=== PATIENT | female | born 2005 | race Caucasian/White ===

== ENCOUNTER 2024-07-12 22:12 | Observation (INO) | payer OTHER, SELFPAY ==
--- NOTE | ~2024-07-12 | CT_ITS ---
CLINICAL HISTORY: RLQ pain CT abdomen and pelvis with contrast Comparison: None Findings: No consolidation of imaged lung bases. No liver mass. Spleen is nonenlarged. Adrenal glands are partly obscured but otherwise unremarkable. Gallbladder is unremarkable for CT. Pancreas unremarkable. Filtered contrast could obscure medullary calcinosis or small stones in the renal collecting systems. No hydronephrosis. Small mesenteric and periaortic lymph nodes are nonspecific and likely reactive. No small bowel obstruction. Severe stool burden present, including imaged cecum. Mild dilatation of the appendix measuring 0.8 cm diameter. This raises imaging concern for appendicitis, given fluid in the right lower quadrant and additional free fluid in the lower abdomen and pelvis. Fluid in the pelvic is nonspecific, and pelvic inflammatory disease is also considered. Intrauterine device is in place. No adnexal soft tissue mass by CT. Mild wall thickening of the urinary bladder is nonspecific. No free intraperitoneal air. No acute fracture. Multiple imaged growth plates remain open. Subcutaneous edema is noted. IMPRESSION: Mild dilatation of the appendix concerning for appendicitis; given abnormal free fluid in the abdomen and pelvis. This document has been electronically signed by: Hi Joe MD on 07/13/2024 02:56:37
[2024-07-12 22:25] VITALS: BP 167/87; PULSE 84; RESP 20; TEMP 36.8; O2SAT 100; BMI 25.8
[2024-07-12 22:51] LABS: MANUAL DIFF FLAG NO
[2024-07-12 22:58] LABS: Basophils Percent Auto 0.3 % (0-2); Eosinophils Absolute Auto 0.1 X10*3/uL (0.0-0.4); Eosinophils Percent Auto 0.4 % (0-4); Hematocrit 38.4 % (37.0-47.0); Hemoglobin 13.1 g/dl (12.0-16.0); Imm Gran Abs Auto 0.02 X10*3/uL (0.00-0.03); Imm Gran Pct Auto 0.2 % (0.0-0.4); Lymphocytes Percent Auto 17.5 % (20-40); Mean Corpuscular HGB Conc 34.1 g/dl (31.0-35.0); Mean Corpuscular Hemoglobin 29.2 pg (27.0-33.0); Mean Corpuscular Volume 85.5 fL (80.0-98.0); Mean Platelet Volume 8.8 fL (9.4-12.3); Monocytes Absolute Auto 0.8 X10*3/uL (0.1-1.2); Monocytes Percent Auto 6.9 % (2-11); Neutrophils Absolute Auto 8.7 x10*3/uL (2.0-8.3); Neutrophils Percent Auto 74.7 % (45-73); Platelet Count 319 X10*3/uL (160-400); Red Blood Count 4.49 X10*6/uL (4.20-5.50); Red Cell Distribution Width 12.4 % (11.0-16.0); White Blood Count 11.7 X10*3/uL (4.8-10.8)
[2024-07-12 23:06] LABS: Alanine Aminotransferase 24 U/L (0-31); Albumin Level 4.1 g/dL (3.5-5.0); Alkaline Phosphatase 73 U/L (39-117); Anion Gap 12 (12-20); Aspartate Amino Transferase 22 U/L (5-31); Bilirubin Total 0.2 mg/dL (0.0-1.0); Blood Urea Nitrogen 13 mg/dL (9-16); Calcium 8.7 mg/dL (8.4-10.2); Carbon Dioxide 25 mmol/L (22-29); Chloride 105 mmol/L (96-108); Creatinine Clr Calc Pharmacy 148.1; Estimated Glomerular Filt Rate > 60; Glucose Random 102 mg/dL (60-115); Potassium 3.2 mmol/L (3.3-5.1); Sodium 139 mmol/L (135-145); Total Protein 7.8 g/dL (6.5-8.0)
[2024-07-12 23:34] LABS: Influenza A PCR NEGATIVE (Negative); Influenza B PCR NEGATIVE (Negative); Resp Syncy Virus RNA Qual PCR NEGATIVE (Negative); SARS COV2 PCR INHOUSE NEGATIVE (Negative)
--- NOTE | 2024-07-13 00:53 | ED.ABDPAIN ---
HPI - Abdominal Pain General Chief Complaint: Abdominal Pain Stated Complaint: lower right abd pain Time Seen by Provider: 07/13/24 00:45 Source: patient Mode of arrival: ambulatory Limitations: no limitations History of Present Illness ED Provider: SIXTO HPI narrative: 18 yo female with no PMH here with LLQ pain now RLQ pain and nausea no fevers no diarrhea pain initially LLQ now RLQ and it hurts to move. She notes some pain with intercourse denies prior abd surgery. MD elicited complaint: abdominal pain Pertinent past history: none Onset (ago): day(s) (5) Pain Consistency: intermittent Location: RLQ and suprapubic Severity: moderate Quality: aching Radiation: none Migration to: no migration Exacerbating factors: movement and other Relieving factors: nothing Associated symptoms: nausea Related Data Allergies Allergy/AdvReac Type Severity Reaction Status Date / Time No Known Allergies Allergy Verified 07/12/24 22:27 Review of Systems Review of Systems Constitutional : No Weight loss, No Fever, No Chills ENT/Mouth : No sore throat, No Rhinorrhea Eyes: No Swelling, No Redness Cardiovascular : No Chest Pain, No SOB, NoEdema Respiratory : No Cough, No Sputum, No Wheezing Gastrointestinal : Positive Nausea, Positive Vomiting, no Diarrhea, positive abdominal Pain, No Hematochezia, No Melena Genitourinary : No Dysuria, No Urinary Frequency, No Hematuria, No Urgency Musculoskeletal : No joint pain, No Myalgias, No Joint Swelling Skin : No Skin Lesions, No rash Neuro : No Weakness, No Numbness, No Dizziness, No Headache Psych : No Anxiety/Panic, No Depression Heme/Lymph: No Bruising, No Lymphadenopathy Endocrine : No Polyuria, No Polydipsia All other systems reviewed and are negative. [facility] Past Medical History Attestation statement: The following information was validated with the patient. Source: old records reviewed Medical History No pertinent past medical history Social History Social History (Updated 07/13/24 @ 00:55 by Alcira Welch DO) Patient Tobacco Use Status: Never used Tobacco Advance Directives: No Advance Directives Information Provided: No Physical Exam ED Vital Signs: Vital Signs - 24 hr 07/12/24 22:25 Temperature 98.3 F Pulse Rate 84 Respiratory Rate 20 Blood Pressure 167/87 H Pulse Oximetry 100 Oxygen Delivery Method Room Air BMI result Body Mass Index 25.8 Appearance: Alert. Oriented X3. No acute distress. Eyes: Pupils equal, round and reactive to light. ENT: Pharynx normal. Neck: Normal inspection. Neck supple. CVS: Normal heart rate and rhythm. Pulses normal. Respiratory: No respiratory distress. Breath sounds normal. Abdomen: Soft and moderate ttp in RLQ palpation of LLQ causes pain in RLQ Skin: Skin warm and dry. Normal skin color. Normal skin turgor. Extremities: No lower extremity edema. No calf ttp Neuro: Oriented X 3. No motor deficit. No sensory deficit. CN2-12 intact Medical Decision Making Medical Decision Making [facility] Narrative: 18 yo female with abdominal pain now with RLQ pain and + Rovsings sign at this time will need basic labs, CT scan for appendicitis, if negative possible US of ovary, IVF and IV toradol for pain Differential Diagnosis Differential Diagnoses: The differential diagnosis associated with the presentation includes ovarian cyst, appendicitis Admission/Observation Consideration of admission/observation: Escalation of care including admission/observation considered admit to surgery, Dr. Ruiz to see first thing in AM Consult Healthcare Provider Management of the patient was discussed with: Improvement Coordinator Lab Data [facility] Lab Attestation statement: I reviewed the patient's lab results. 07/12/24 22:46 07/12/24 22:46 Labs: Lab Results 07/12/24 07/13/24 Range/Units 22:46 01:20 WBC 11.7 H (4.8-10.8) X10*3/uL RBC 4.49 (4.20-5.50) X10*6/uL Hgb 13.1 (12.0-16.0) g/dl Hct 38.4 (37.0-47.0) % MCV 85.5 (80.0-98.0) fL MCH 29.2 (27.0-33.0) pg MCHC 34.1 (31.0-35.0) g/dl RDW 12.4 (11.0-16.0) % Plt Count 319 (160-400) X10*3/uL MPV 8.8 L (9.4-12.3) fL Immature Gran % (Auto) 0.2 (0.0-0.4) % Neut % (Auto) 74.7 H (45-73) % Lymph % (Auto) 17.5 L (20-40) % Henry % (Auto) 6.9 (2-11) % Eos % (Auto) 0.4 (0-4) % Baso % (Auto) 0.3 (0-2) % Lymph # (Auto) 2.0 (1.2-4.9) X10*3/uL Henry # (Auto) 0.8 (0.1-1.2) X10*3/uL Eos # (Auto) 0.1 (0.0-0.4) X10*3/uL Baso # (Auto) 0.0 (0.0-0.2) X10*3/uL Abs Immat Gran (auto) 0.02 (0.00-0.03) X10*3/uL Absolute Neuts (auto) 8.7 H (2.0-8.3) x10*3/uL Absolute Nucleated RBC 0.000 (0.0-0.012) X10*3/uL Nucleated RBC % (auto) 0.0 (0.0-0.2) /100WBC Sodium 139 (135-145) mmol/L Potassium 3.2 L (3.3-5.1) mmol/L Chloride 105 (96-108) mmol/L Carbon Dioxide 25 (22-29) mmol/L Anion Gap 12 (12-20) BUN 13 (9-16) mg/dL Creatinine 0.64 (0.5-1.4) mg/dL Estim Creat Clear Calc 148.1 Estimated GFR > 60 Random Glucose 102 (60-115) mg/dL Calcium 8.7 (8.4-10.2) mg/dL Total Bilirubin 0.2 (0.0-1.0) mg/dL AST 22 (5-31) U/L ALT 24 (0-31) U/L Alkaline Phosphatase 73 (39-117) U/L Total Protein 7.8 (6.5-8.0) g/dL Albumin 4.1 (3.5-5.0) g/dL Urine Color Yellow Urine Appearance Clear Urine pH 6.5 (5.0-9.0) Ur Specific [place] 1.020 (1.005-1.025) Urine Protein Negative (Neg-Trace) mg/dL Urine Glucose (UA) Negative (Negative) mg/dL Urine Ketones Trace (Negative) mg/dL Urine Blood Negative (Negative) Urine Nitrite Negative (Negative) Ur Leukocyte Esterase Small (1+) H (Negative) Urine RBC 0-2 (0-2) /HPF Urine WBC 0-5 (0-5) /HPF Ur Squamous Epith Cells 0-2 (0-2) /HPF Urine Bacteria None Seen (None Seen) Hyaline Casts 0-2 (0-2) /LPF Urine Test NEGATIVE (NEGATIVE) Influenza Type A (PCR) NEGATIVE (Negative) Influenza Type B (PCR) NEGATIVE (Negative) RSV RNA Qual (PCR) NEGATIVE (Negative) SARS-CoV-2 RNA (RT-PCR) NEGATIVE (Negative) Independent Interpretation I performed an independent interpretation of an: CT Scan (?appendicitis) Radiology Impression Discussion of test interpretation with radiology: I have reviewed the radiologist's reading. Prescription Management I considered prescription management with: Pain Medication and Other Medications Administered Discontinued Medications Generic Name Dose Route Start Last Admin Trade Name Freq PRN Reason Stop Dose Admin Lactated Ringer's 1,000 mls @ 999 mls/hr 07/13/24 00:51 07/13/24 01:17 Lr IV 07/13/24 01:51 999 mls/hr .Q1H1M ONE Administration Iohexol 85 ml 07/13/24 02:03 07/13/24 02:04 Iohexol 350 Mg/Ml 100 Ml Infus..Btl IV 07/13/24 02:04 85 ml ONCE ONE Administration Ketorolac Tromethamine 15 mg 07/13/24 00:51 07/13/24 01:14 Ketorolac Tromethamine 15 Mg/Ml Vial IVPUSH 07/13/24 00:52 15 mg ONCE ONE Administration Ondansetron HCl 4 mg 07/13/24 00:51 07/13/24 01:14 Ondansetron Hcl 4 Mg/2 Ml Vial IVPUSH 07/13/24 00:52 4 mg ONCE ONE Administration Discharge Plan Discharge Clinical Impression: Abdominal pain, Acute hypokalemia Patient Disposition: Admitted As Inpatient Print Language: Amharic
[2024-07-13] MEDS: ondansetron HCL 4 MG/2 ML VIAL IVPUSH ×2 (01:14→15:13)
[2024-07-13] MEDS: Ketorolac Tromethamine 15 MG/ML VIAL IVPUSH (01:14)
[2024-07-13] MEDS: Lactated Ringers 1,000 ML 999 ML IV (01:17)
[2024-07-13 01:31] LABS: Appearance Urine Clear; Color Urine Yellow; Glucose Urine UA Negative (Negative); Leukocyte Esterase Urine Small (1+) (Negative); Nitrite Urine Negative (Negative); PH 6.5 (5.0-9.0); UMIC TRIGGER UACC YES; UPreg QC Valid YES; Urine Blood Negative (Negative); Urine Ketones Trace mg/dL (Negative); Urine Pregnancy NEGATIVE (NEGATIVE); Urine Protein Negative (Neg-Trace)
[2024-07-13 01:42] LABS: Bacteria Urine None Seen (None Seen); Hyaline Casts Urine 0-2 /LPF (0-2); RBC Urine 0-2 /HPF (0-2); Squamous Epithelial Cell Urine 0-2 /HPF (0-2); UACC Culture Trigger YES; WBC Urine 0-5 /HPF (0-5)
[2024-07-13] MEDS: iohexoL 350 MG/ML 100 ML INFUS..BTL 85 ML IV (02:04)
[2024-07-13] MEDS: Piperacillin Sodium/Tazobactam 3.375 GM in 0.9 % Sodium Chloride 50 ML IV ×4 (04:21→21:20)
[2024-07-13 04:27] VITALS: BP 118/79; PULSE 80; RESP 18; TEMP 36.8; O2SAT 100
[2024-07-13] MEDS: Lactated Ringers 1,000 ML 80 ML IVCONT ×2 (05:04→16:03)
[2024-07-13] MEDS: Potassium Chloride/H20 10 MEQ/100 ML PIGGYBACK 100 MEQ IV ×2 (05:04→06:08)
[2024-07-13 07:21] VITALS: BP 110/60; PULSE 97; RESP 20; TEMP 36.8; O2SAT 100
--- NOTE | 2024-07-13 07:39 | P.HPGS_ITS ---
History of Present Illness History of Present Illness Date of Service: 07/13/24 Chief complaint: Early appendicitis Narrative: Nicci Sharma is a 18 year old female presenting with complaints of right lower quadrant abdominal pain. For the previous week she reported pain in the left lower quadrant which gradually radiated to the right lower quadrant over the past 24 hours. The pain was between 6 and 8/10 in severity last evening but now as a proximally 5/10. She denies nausea or vomiting and reports having a good appetite this morning. She denied fever or chills. She did report pain with motion such as sitting up on bed. This is improved this morning. She denies a previous history of similar symptoms. Workup revealed a mildly elevated WBC. CT abdomen and pelvis revealed dilated appendix at 8 cm suggestive of early appendicitis. She was admitted to the surgical service for further management. Review of Systems Review of Systems: Yes all other systems are reviewed and are negative PMFSH Past Medical History Medical History (Updated 07/13/24 @ 07:45 by Iain Ruiz MD) Acute appendicitis No pertinent past medical history Social History Social History (Updated 07/13/24 @ 00:55 by Alcira Welch DO) Patient Tobacco Use Status: Never used Tobacco Smoked in Last 30 Days: No Use of substances other than those prescribed or required for medical reasons: No Advance Directives: No Advance Directives Information Provided: No Patient : No Meds Allergies Allergy/AdvReac Type Severity Reaction Status Date / Time No Known Allergies Allergy Verified 07/12/24 22:27 Active Medications: Current Medications Acetaminophen (Acetaminophen 325 Mg Tablet) 650 mg PO Q6H PRN PRN Reason: Pain, Mild 1-3,fever,headache Calcium Carbonate (Calcium Carbonate 750 Mg Tab.Chew) 750 mg PO Q4H PRN PRN Reason: Heartburn Hydromorphone HCl (Hydromorphone Hcl 0.5 Mg/0.5 Ml Syringe) 0.5 mg IVPUSH Q3H PRN; Protocol PRN Reason: Pain, Severe (Pain Scale 7-10) Lactated Ringer's (Lr) 1,000 mls @ 80 mls/hr IVCONT .[id number] LUCY Last Admin: 07/13/24 05:04 Dose: 80 mls/hr Piperacillin Sod/Tazobactam (Sod 3.375 gm/ Sodium Chloride) 50 mls @ 100 mls/hr IV Q6H [facility] Last Infusion: 07/13/24 05:03 Dose: Infused Magnesium Hydroxide (Milk Of Magnesia 30 Ml Oral.Susp) 30 ml PO DAILY PRN PRN Reason: Constipation Ondansetron HCl (Ondansetron Hcl 4 Mg/2 Ml Vial) 4 mg IVPUSH QID PRN PRN Reason: Nausea Oxycodone HCl (Oxycodone Hcl Immed Release 5 Mg Tablet) 5 mg PO Q6H PRN PRN Reason: Pain, Moderate(Pain Scale 4-6) Sodium Chloride (0.9 % Sodium Chloride Flush 3 Ml Syringe) 3 ml IVFLUSH QSHIFT [facility] Zolpidem Tartrate (Zolpidem Tartrate 5 Mg Tablet) 5 mg PO BEDTIME PRN PRN Reason: Insomnia Home Medications ?Medication ?Instructions ?Recorded ?Confirmed ?Last Taken ?Type omeprazole 20 mg capsule,delayed 20 mg PO DAILY@0630 07/13/24 Unknown History release Physical Exam Vital Signs: Vital Signs: Last Vital Signs Temp 98.2 F 07/13/24 07:21 Pulse 97 07/13/24 07:21 Resp 20 07/13/24 07:21 BP 110/60 07/13/24 07:21 Pulse Ox 100 07/13/24 07:21 O2 Del Method Room Air 07/13/24 07:21 BMI result Body Mass Index 25.8 Const: General: healthy appearing and comfortable Nutritional Appearance: well nourished Orientation/consciousness: patient oriented x3 Limitations: no limitations HEENT: Head: Yes normocephalic and Yes atraumatic Resp: Effort & Inspection: normal respiratory effort, no audible wheezes, no cough and no respiratory distress GI: Other: Soft, mild tenderness in the right lower quadrant, positive Rovsing sign, no rebound, guarding or rigidity. No scars Skin: Other: Warm, dry, no rashes Neuro: General: patient oriented x3 Extrem: General: Yes no clubbing, cyanosis or edema Results Results Labs: Short CBC 07/12/24 Range/Units 22:46 WBC 11.7 H (4.8-10.8) X10*3/uL Hgb 13.1 (12.0-16.0) g/dl Hct 38.4 (37.0-47.0) % Plt Count 319 (160-400) X10*3/uL BMP 07/12/24 22:46 Sodium 139 Potassium 3.2 L Chloride 105 Carbon Dioxide 25 BUN 13 Creatinine 0.64 Calcium 8.7 Liver Function 07/12/24 Range/Units 22:46 Total Bilirubin 0.2 (0.0-1.0) mg/dL AST 22 (5-31) U/L ALT 24 (0-31) U/L Alkaline Phosphatase 73 (39-117) U/L Albumin 4.1 (3.5-5.0) g/dL Urine 07/13/24 Range/Units 01:20 Urine Color Yellow Urine Appearance Clear Urine pH 6.5 (5.0-9.0) Ur Specific [place] 1.020 (1.005-1.025) Urine Protein Negative (Neg-Trace) mg/dL Urine Glucose (UA) Negative (Negative) mg/dL Urine Test NEGATIVE (NEGATIVE) Assessment and Plan (1) Acute appendicitis: Qualifiers: Acute appendicitis type: with localized peritonitis Appendicitis gangrene presence: without gangrene Appendicitis perforation presence: without perforation Appendicitis abscess presence: without abscess Qualified Code(s): K35.30 - Acute appendicitis with localized peritonitis, without perforation or gangrene Status: Acute Plan 18-year-old female patient presenting with complaints of left lower quadrant pain of 1 week's duration now in the right lower quadrant for the past 24 hours. Examination reveals tenderness in the right lower quadrant with a positive Rovsing sign suggestive of appendicitis. CT reveals an 8 mm appendix with no fecalith. The findings were discussed in detail with the patient and her mother (over the telephone) in the option of laparoscopic appendectomy verses a trial of IV antibiotics were reviewed along with the relative risks and benefits. They wished to continue the IV antibiotics and avoid surgery if possible. They understand that if the symptoms worsen she may still require appendectomy. She will be given another 24 hours of IV antibiotics and then converted to orals as long as her symptoms improve. Quality Stroke Does the patient have a stroke diagnosis?: No VTE Prior VTE?: No VTE Risk Level:: Surgical - low VTE Device Contraindication: N/A - Device Ordered VTE Drug Contraindication: Treatment Not Indicated Procedures Date of Service Date of Service: 07/13/24
--- NOTE | 2024-07-13 08:00 | PC.NURSE ---
patient resting quietly in room, resp even and unlabored, skin dry and intact.patient [id number], ambulatory to the bathroom. patient has LR running at 80ml/hr. GI consult done, patient awaiting admission bed upstairs
--- NOTE | 2024-07-13 13:24 | PHA.MEDREC ---
Pharmacy Consult ? Medication Reconciliation Pharmacy has completed the medication reconciliation, spoke to patient at bedside who confirmed only using omeprazole and ibu/apap PRN.
[2024-07-13 19:29] VITALS: BP 132/60; PULSE 73; RESP 16; TEMP 36.7; O2SAT 100
--- NOTE | 2024-07-13 22:22 | PC.NURSE ---
Summary of care: Pt is a 18y.o female presenting to the ED with complaints of LLQ pain now x1 week with new pain in the RLQ x 24 hours. Pt is A&O x4, independent with ADL's at baseline, calm, polite, and cooperative with care. On arrival pt 20G IV was placed in R-AC, and labs were obtained, WBC elevated to 11.7. K+ 3.2. Pt has CT imaging in dept which revealed a dialated appendix measuring 8cm , which is consistent with early apendicitis. Pt was seen by general surgery, pt admitted for IV abx/observation in hopes to potentially avoid surgical intervention. Pt rec zozyn 3.375gm per MAR while in dept, pt has been tolerating diet, no complaints of pain at this time. Plan is for re-eval after 24 hours of IV ABX tx.
--- NOTE | 2024-07-13 23:22 | PC.NURSE ---
Took over care from JOSE ELIAS Vicente pt resting at this time no sign of distress.
[2024-07-14 00:21] VITALS: BP 129/57; PULSE 67; RESP 15; TEMP 36.8; O2SAT 99
[2024-07-14] MEDS: Piperacillin Sodium/Tazobactam 3.375 GM in 0.9 % Sodium Chloride 50 ML IV (03:26)
--- NOTE | 2024-07-14 03:28 | PC.NURSE ---
pt was sleeping comfortable, denies any pain at the time, medicated per mar.
--- NOTE | 2024-07-14 03:29 | PC.NURSE ---
Iv placed prior to shift, intact.
[2024-07-14] MEDS: Lactated Ringers 1,000 ML 80 ML IVCONT (03:37)
--- NOTE | 2024-07-14 03:41 | PC.NURSE ---
pt medicated per mar.
[2024-07-14 04:38] VITALS: BP 104/50; PULSE 60; RESP 18; TEMP 36.7; O2SAT 98
--- NOTE | 2024-07-14 07:39 | PM.PNGS ---
Subjective Subjective Date of Service: 07/14/24 Interval history: Patient feels improved with no further abdominal pain. She was able to tolerate a regular diet last evening without nausea or vomiting. She feels ready for discharge to home. Physical Exam Vital Signs: Vital Signs: Last Vital Signs Temp 98.1 F 07/14/24 04:38 Pulse 60 07/14/24 04:38 Resp 18 07/14/24 04:38 BP 104/50 L 07/14/24 04:38 Pulse Ox 98 07/14/24 04:38 O2 Del Method Room Air 07/14/24 04:38 BMI result Body Mass Index 25.8 Const: General: no acute distress Nutritional Appearance: well nourished Orientation/consciousness: patient oriented x3 Resp: Effort & Inspection: normal respiratory effort, no audible wheezes, no cough and no respiratory distress GI: Inspection: Yes normal to inspection Palpation (GI): Soft to palpation, nontender, no guarding and not rigid Neuro: General: patient oriented x3 Extrem: General: Yes normal to inspection Objective Data Active Medications Acetaminophen (Acetaminophen 325 Mg Tablet) 650 mg PO Q6H PRN PRN Reason: Pain, Mild 1-3,fever,headache Calcium Carbonate (Calcium Carbonate 750 Mg Tab.Chew) 750 mg PO Q4H PRN PRN Reason: Heartburn Hydromorphone HCl (Hydromorphone Hcl 0.5 Mg/0.5 Ml Syringe) 0.5 mg IVPUSH Q3H PRN; Protocol PRN Reason: Pain, Severe (Pain Scale 7-10) Lactated Ringer's (Lr) 1,000 mls @ 80 mls/hr IVCONT .[id number] [facility] Last Admin: 07/14/24 03:37 Dose: 80 mls/hr Documented By: FAHAD Piperacillin Sod/Tazobactam (Sod 3.375 gm/ Sodium Chloride) 50 mls @ 100 mls/hr IV Q6H [facility] Last Admin: 07/14/24 03:26 Dose: 100 mls/hr Documented By: FAHAD Magnesium Hydroxide (Milk Of Magnesia 30 Ml Oral.Susp) 30 ml PO DAILY PRN PRN Reason: Constipation Ondansetron HCl (Ondansetron Hcl 4 Mg/2 Ml Vial) 4 mg IVPUSH QID PRN PRN Reason: Nausea Last Admin: 07/13/24 15:13 Dose: 4 mg Documented By: FLORIDALMA Oxycodone HCl (Oxycodone Hcl Immed Release 5 Mg Tablet) 5 mg PO Q6H PRN PRN Reason: Pain, Moderate(Pain Scale 4-6) Sodium Chloride (0.9 % Sodium Chloride Flush 3 Ml Syringe) 3 ml IVFLUSH QSHIFT LUCY Last Admin: 07/14/24 03:37 Dose: Not Given Documented By: FAHAD Non-Admin Reason: IV Running Zolpidem Tartrate (Zolpidem Tartrate 5 Mg Tablet) 5 mg PO BEDTIME PRN PRN Reason: Insomnia Labs 07/12/24 22:46 07/12/24 22:46 Procedures Date of Service Date of Service: 07/14/24 Progress Note: A&P Assessment and plan (1) Acute appendicitis: Status: Acute Plan Patient's symptoms are much improved this morning with no further abdominal pain. On examination the patient is nontender, without rebound or guarding. She was able to tolerate p.o. without nausea or vomiting. She will be discharged to home with oral antibiotics for another 7 days. She will follow up in our office in approximately 1 week. She should call sooner for increasing pain or other symptoms. Time Spent With Patient Time: Total time managing care of this patient today ____ minutes. Quality Stroke Does the patient have a stroke diagnosis?: No VTE Prior VTE?: No VTE Risk Level:: Surgical - low VTE Device Contraindication: N/A - Device Ordered VTE Drug Contraindication: Treatment Not Indicated
--- NOTE | 2024-07-14 07:41 | PM.DS ---
DS: Providers Provider Date of Service: 07/14/24 Date of admission: 07/13/24 07:34 Date of discharge: 07/14/24 Primary care physician: Nonstaff Physician Admitting clinician: Iain Ruiz Discharging clinician: Iain Ruiz DS: Diagnosis Discharge Diagnosis (1) Acute appendicitis: Status: Acute DS: Summary Hospital Course Hospital Course: Nicci Sharma is a 18 year old female presenting with complaints of right lower quadrant abdominal pain. For the previous week she reported pain in the left lower quadrant which gradually radiated to the right lower quadrant over the past 24 hours. The pain was between 6 and 8/10 in severity last evening but now as a proximally 5/10. Workup revealed a mildly elevated WBC and CT abdomen and pelvis revealed a mildly distended appendix suggestive of early appendicitis. She was offered either laparoscopic appendectomy or nonoperative management with IV antibiotics. She was agreeable to the non operative management and was subsequently started on Zosyn. By yesterday morning she was feeling improved with no further vomiting and improvement in her abdominal pain. She was subsequently started on a regular diet which he tolerated with some minimal nausea but no vomiting. On 07/14/2024 she reported no further abdominal pain and only minimal to no nausea. She feels ready for discharge to home. Plan is for her to follow up in the office in approximately 1 week. She will be discharged home on Augmentin 500 mg p.o. t.i.d. for the next 7 days. She is welcome to call the office if her symptoms return. She expressed understanding and agrees with the plan. Time spent discussing smoking cessation with patient: 3 to 10 minutes Status at Discharge Functional status at discharge: independent ambulation Overall status at discharge: patient is back to baseline Time Attestation Discharge Coordination Time (in mins): 20 Quality: Safe Use of Opioids Does Pt have an Active Cancer Diagnosis on the Problem List?: No Quality: Stroke Does the patient have a stroke diagnosis?: No Physical Exam Vital Signs: Vital Signs: Last Vital Signs Temp 98.1 F 07/14/24 04:38 Pulse 60 07/14/24 04:38 Resp 18 07/14/24 04:38 BP 104/50 L 07/14/24 04:38 Pulse Ox 98 07/14/24 04:38 O2 Del Method Room Air 07/14/24 04:38 BMI result Body Mass Index 25.8 Const: General: no acute distress Nutritional Appearance: well nourished Orientation/consciousness: patient oriented x3 Resp: Effort & Inspection: normal respiratory effort, no audible wheezes, no cough and no respiratory distress GI: Inspection: Yes normal to inspection Palpation (GI): Soft to palpation, nontender, no guarding and not rigid Neuro: General: patient oriented x3 Extrem: General: Yes normal to inspection Discharge Plan Discharge Anticipated Discharge Date/Time: 07/14/24 07:35 Patient Disposition: Home, Self-Care Referrals: Physician,Nonstaff [Primary Care Provider] - 1 Week Iain Ruiz MD [Physician] - 1 Week Discharge Medications: New amoxicillin-pot clavulanate [Augmentin] 500-125 mg tablet 1 tab PO Q8H Qty: 28 0RF Continued omeprazole 20 mg capsule,delayed release(DR/EC) 20 mg PO DAILY@0630 acetaminophen 325 mg Tablet 650 mg PO Q6H PRN (Reason: Pain) ibuprofen 200 mg Tablet 400 mg PO Q6H PRN (Reason: Pain) Discharge Orders: Discharge Order (Routine); Ordered 07/14/24 Ordered By: Iain Ruiz Diet: Advance to usual diet Activity on Discharge: As tolerated Stand Alone Forms: Patient Portal Discharge page Print Language: Kyrgyz Care Plan Goals: Return to normal activity and diet Health Concerns: Abdominal pain in the lower abdomen Plan of Treatment: Treatment with IV antibiotics converted to oral antibiotics. Assessment: Early appendicitis without abscess/perforation
[2024-07-14 08:32] VITALS: BP 109/65; PULSE 82; RESP 16; TEMP 36.8; O2SAT 100
--- NOTE | 2024-07-14 13:07 | MHC.CM.PN ---
pt left prior to being seen by cm pt dcd home self care
== END 2024-07-14 08:51 | disposition home or self-care (01) ==
LOC: HO.ED 07-13 03:10 → HO.EDOVER 07-13 07:44
PROVIDERS: Admitting Provider Surgery; Emergency Provider Emergency Medicine; Visit Provider Surgery
DX: K35.30 Acute appendicitis with localized peritonitis, without perforation or gangrene (principal); R10.31 Right lower quadrant pain; E87.6 Hypokalemia; Z03.818 Encounter for observation for suspected exposure to other biological agents ruled out
CPT/HCPCS: 0241U; 36415; 74177; 80053; 81001; 81025; 85025; 87086; 87147; 96361; 96365; 96366; 96367; 96375; 96376; 99221; 99285; J1885; J2405; J2543; J3480; J7120; Q9967

== ENCOUNTER → 2024-07-13 00:51 | Outpatient (BNV) | payer OTHER, SELFPAY | PROVIDERS: Emergency Provider Emergency Medicine; Visit Provider Radiology Neuroradiology | DX: R10.31 Right lower quadrant pain (principal) | CPT/HCPCS: 74177 ==

== ENCOUNTER → 2024-07-13 07:34 | Outpatient (BNV) | payer OTHER, SELFPAY | PROVIDERS: Admitting Provider Surgery; Emergency Provider Emergency Medicine; Visit Provider Surgery | DX: K35.30 Acute appendicitis with localized peritonitis, without perforation or gangrene (principal) | CPT/HCPCS: 99222; 99238 ==